=== PATIENT | male | born 2005 | race Caucasian/White ===

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

== ENCOUNTER 2025-05-06 16:37 | Emergency (ER) | payer BC, OTHER ==
[2025-05-06] MEDS ORDERED: Sodium Chloride 0.9% 10 ML Syringe FLUSH PRN (17:01)
[2025-05-06] MEDS: diphenhydrAMINE 50 MG/ML SDV IVPUSH ONE (17:25)
[2025-05-06] MEDS: methylPREDNISolone Sodium Succinate 125 MG/2 ML SDV IVPUSH ONE (17:25)
== END 2025-05-06 20:20 | disposition home or self-care (01) ==
LOC: JD.ED 16:37
DX: T63.441A Toxic effect of venom of bees, accidental (unintentional), initial encounter (principal); Z86.16 Personal history of COVID-19
CPT/HCPCS: 96374; 96375; 99283; A9270; J1200; J1308; J2919; 99284